=== PATIENT | male | born 1960 | race Caucasian/White ===

== ENCOUNTER 2021-07-15 11:50 | Emergency (ER) | payer MEDICAID, OTHER ==
[~2021-07-15] VITALS: Ht 167.6 cm; Wt 69.0 kg
[2021-07-15] MEDS ORDERED: POLY119P2 MT (15:41)
[2021-07-15] MEDS ORDERED: HYDR30CR80 TP (15:41)
[2021-07-15] MEDS ORDERED: LIDO30CR TP (15:41)
[2021-07-15 16:15] VITALS: BP 127/85
== END 2021-07-15 16:17 | disposition home or self-care (01) ==
LOC: ER 12:06
DX: K64.4 Residual hemorrhoidal skin tags (principal); E78.00 Pure hypercholesterolemia, unspecified; Z90.49 Acquired absence of other specified parts of digestive tract
CPT/HCPCS: 99283